=== PATIENT | female | born 1945 | race Hispanic/Latino ===

== ENCOUNTER 2017-08-25 21:17 | Emergency (ER) | payer MEDICARE ==
[2017-08-25 21:40] LABS: BASOPHILS % (AUTO) 0.5 % (0.0-5.0); EOSINOPHILS % (AUTO) 1.8 % (0.0-8.0); HEMATOCRIT 33.5 % (36-48); LYMPHOCYTES % (AUTO) 28.3 % (21.0-51.0); MEAN CORPUSCULAR HEMOGLOBIN 26.9 pg (27.0-33.0); MEAN CORPUSCULAR HGB CONC 32.3 g/dL (32.0-36.0); MEAN CORPUSCULAR VOLUME 83.4 fL (79-99); MONOCYTES % (AUTO) 7.8 % (3.0-13.0); NEUTROPHILS % (AUTO) 61.6 % (40.0-77.0); PLATELET COUNT (AUTO) 399 K/uL (130-400); RED BLOOD CELL COUNT(AUTO) 4.01 MIL/uL (4.00-5.50); RED CELL DISTRIBUTION WIDTH 14.4 % (11.0-15.5); WHITE BLOOD COUNT (AUTO) 12.6 K/uL (4.8-10.8)
[2017-08-25 21:50] LABS: CREATININE 1.1 mg/dL (0.5-1.5); POTASSIUM 3.8 mmol/L (3.5-5.1)
[2017-08-25 21:57] LABS: BILIRUBIN,TOTAL 0.1 mg/dL (0.2-1.0); TOTAL PROTEIN, SERUM 7.3 g/dL (6.0-8.3)
[2017-08-25 21:59] LABS: B-TYPE NATRIURETIC PEPTIDE 61 pg/mL (0-100)
[2017-08-25 22:15] LABS: RAPID GROUP A STREP NEGATIVE (NEGATIVE)
[2017-08-25] MEDS ORDERED: MECLIZINE HCL 25 MG TABLET ONE (22:39)
[2017-08-25] MEDS ORDERED: ONDANSETRON ODT 4 MG TAB ONE (22:40)
[2017-08-25 23:35] LABS: APPEARANCE,URINE Clear (CLEAR); BILIRUBIN,URINE Negative (NEGATIVE); COLOR,URINE Yellow (YELLOW); GLUCOSE, URINE (UA) Negative (NEGATIVE); KETONES,URINE Negative (NEGATIVE); LEUKOCYTE ESTERASE ,URINE Small (NEGATIVE); NITRATE,URINE Negative (NEGATIVE); OCCULT BLOOD,URINE Negative (NEGATIVE); PROTEIN,URINE POS 1+ (NEGATIVE); UROBILINOGEN,URINE 0.2 mg/dL (0.2-1.0)
[2017-08-25 23:49] LABS: BACTERIA,URINE Few /HPF (None Seen); RBC,URINE 0-1 /HPF (0-1); SQUAMOUS EPITHELIAL CELL,UR 0-2 /LPF (0-2)
[2017-08-26] MEDS ORDERED: DEXAMETHASONE SOD PHOSPHATE 4 MG/ML 1ML VIAL ONE (00:09)
== END 2017-08-26 01:15 | disposition home or self-care (01) ==
LOC: EDH 21:17
DX: B34.9 Viral infection, unspecified (principal); R42 Dizziness and giddiness; R11.0 Nausea; I10 Essential (primary) hypertension; E78.5 Hyperlipidemia, unspecified; E11.9 Type 2 diabetes mellitus without complications; M19.90 Unspecified osteoarthritis, unspecified site; Z79.4 Long term (current) use of insulin; Z90.710 Acquired absence of both cervix and uterus
CPT/HCPCS: 36415; 80053; 81001; 83605; 83690; 83880; 84484; 85025; 87804 ×2; 87880; 93005; 96372; 99285; J1100

== ENCOUNTER 2017-10-11 12:44 | Observation (INO) | payer MEDICARE ==
[~2017-10-11] VITALS: Ht 152.4 cm; Wt 107.5 kg
[2017-10-11 14:00] LABS: APPEARANCE,URINE CLEAR (CLEAR); BILIRUBIN,URINE NEGATIVE (NEGATIVE); COLOR,URINE YELLOW (YELLOW); GLUCOSE, URINE (UA) NEGATIVE (NEGATIVE); KETONES,URINE NEGATIVE (NEGATIVE); LEUKOCYTE ESTERASE ,URINE TRACE (NEGATIVE); NITRATE,URINE NEGATIVE (NEGATIVE); OCCULT BLOOD,URINE NEGATIVE (NEGATIVE); PROTEIN,URINE TRACE (NEGATIVE); UROBILINOGEN,URINE 0.2 mg/dL (0.2-1.0)
[2017-10-11 14:26] LABS: BACTERIA,URINE None Seen /HPF (None Seen); RBC,URINE None Seen /HPF (0-1); RENAL EPITHELIAL CELLS,URINE Rare /HPF (None Seen); SQUAMOUS EPITHELIAL CELL,UR 0-2 /HPF (0-2); TRANSITIONAL EPI CELLS,URINE Few /HPF (None Seen); WBC,URINE 0-1 /HPF (0-1)
[2017-10-11] MEDS ORDERED: BISACODYL 10 MG SUPP.RECT RC ONE (16:01)
[2017-10-11] MEDS ORDERED: LACTULOSE 20 GM/30 ML UDCUP ONE (16:01)
[2017-10-11] MEDS ORDERED: MAGNESIUM CITRATE 296 ML SOLUTION ONE (16:01)
[2017-10-11] MEDS ORDERED: SODIUM CHLORIDE 0.9% 1000ML 1,000 ML IV ONE (16:01)
[2017-10-11 16:49] LABS: BASOPHILS % (AUTO) 0.8 % (0.0-5.0); EOSINOPHILS % (AUTO) 1.1 % (0.0-8.0); HEMATOCRIT 36.6 % (36-48); MEAN CORPUSCULAR HEMOGLOBIN 26.9 pg (27.0-33.0); MEAN CORPUSCULAR HGB CONC 32.7 g/dL (32.0-36.0); MEAN CORPUSCULAR VOLUME 82.4 fL (79-99); MONOCYTES % (AUTO) 6.3 % (3.0-13.0); NEUTROPHILS % (AUTO) 66.8 % (40.0-77.0); PLATELET COUNT (AUTO) 398 K/uL (130-400); RED BLOOD CELL COUNT(AUTO) 4.44 MIL/uL (4.00-5.50); RED CELL DISTRIBUTION WIDTH 14.3 % (11.0-15.5); WHITE BLOOD COUNT (AUTO) 15.3 K/uL (4.8-10.8)
[2017-10-11 16:55] LABS: CREATININE 1.1 mg/dL (0.5-1.5); MAGNESIUM 2.1 mg/dL (1.80-2.40); POTASSIUM 4.8 mmol/L (3.5-5.1)
[2017-10-11] MEDS ORDERED: ONDANSETRON HCL MDV 20ML 2 MG/ML VIAL ONE (20:21)
[2017-10-11] MEDS ORDERED: MORPHINE SULFATE 2 MG/ML 1ML SYG ONE (20:22)
[2017-10-11 21:00] VITALS: BP 157/66
[2017-10-11] MEDS: MECLIZINE HCL 25 MG TABLET PO SCH (21:30)
[2017-10-11] MEDS ORDERED: MECLIZINE HCL 25 MG TABLET ONE (21:53)
[2017-10-11 23:37] VITALS: BP 148/71
[2017-10-12 03:14] VITALS: BP 152/76
[2017-10-12] MEDS ORDERED: ACETAMINOPHEN 325 MG TAB PO PRN (06:30)
[2017-10-12] MEDS ORDERED: MORPHINE SULFATE 2 MG/ML 1ML SYG IVP PRN (06:30)
[2017-10-12] MEDS ORDERED: ONDANSETRON HCL MDV 20ML 2 MG/ML VIAL IVP PRN (06:30)
[2017-10-12 07:57] VITALS: BP 141/76
[2017-10-12] MEDS ORDERED: SITA100T12 PO (08:11)
[2017-10-12] MEDS ORDERED: METO25TA6 PO (08:11)
[2017-10-12] MEDS ORDERED: ISOS30TA6 PO (08:11)
[2017-10-12] MEDS ORDERED: DOCU100C19 PO (08:11)
[2017-10-12] MEDS ORDERED: ACET-2041 PO (08:11)
[2017-10-12] MEDS ORDERED: AEC81 PO (08:11)
[2017-10-12] MEDS ORDERED: LISI-613 PO (08:11)
[2017-10-12] MEDS ORDERED: FENO48TA4 PO (08:11)
[2017-10-12] MEDS ORDERED: RANI150T7 PO (08:11)
[2017-10-12] MEDS ORDERED: INSU10VI3 SQ ×2 (08:11)
[2017-10-12] MEDS ORDERED: DOCUSATE SODIUM 100 MG CAP PO SCH (09:00)
[2017-10-12] MEDS ORDERED: LINAGLIPTIN 5 MG TABLET PO SCH (09:00)
[2017-10-12] MEDS ORDERED: LISINOPRIL 20 MG TABLET PO SCH (09:00)
[2017-10-12] MEDS ORDERED: METOPROLOL TARTRATE 25 MG TAB PO SCH (09:00)
[2017-10-12] MEDS ORDERED: FENOFIBRATE NANOCRYSTALLIZED 48 MG TAB PO SCH (09:00)
[2017-10-12] MEDS ORDERED: ASPIRIN 81 MG EC TAB PO SCH (09:00)
[2017-10-12] MEDS ORDERED: ISOSORBIDE MONO 30MG TAB SR PO SCH (09:00)
[2017-10-12] MEDS: MECLIZINE HCL 25 MG TABLET PO SCH (09:47)
[2017-10-12 12:53] VITALS: BP 124/61
[2017-10-12] MEDS ORDERED: INSULIN HUMULIN 70/30 100 UNIT/ML 3ML SQ SCH (21:00)
[2017-10-13] MEDS ORDERED: INSULIN HUMULIN 70/30 100 UNIT/ML 3ML SQ SCH (07:30)
== END 2017-10-12 14:50 | disposition home or self-care (01) ==
LOC: EDH 12:44 → EDHIP 15:00 → 3AH 20:50
PROVIDERS: ADMIT Internal Medicine; ATTEND Internal Medicine
DX: K59.00 Constipation, unspecified (principal); E11.9 Type 2 diabetes mellitus without complications; I10 Essential (primary) hypertension; E78.5 Hyperlipidemia, unspecified; M19.90 Unspecified osteoarthritis, unspecified site; E66.01 Morbid (severe) obesity due to excess calories
CPT/HCPCS: 36415; 74021; 80048; 81001; 82948 ×3; 83735; 85025; 99285; G0378 ×24; J7030

== ENCOUNTER → 2017-10-31 | Outpatient (CLI) | payer MEDICARE ==
[~2017-10-31] MED LIST: ACET-2041 PO; AEC81 PO; DOCU100C19 PO; FENO48TA4 PO; INSU10VI3 SQ; ISOS30TA6 PO; LISI-613 PO; METO25TA6 PO; RANI150T7 PO; SITA100T12 PO
== END | disposition home or self-care (01) ==
LOC: SHCH 13:54
PROVIDERS: ATTEND Internal Medicine Cardiovascular Disease
DX: R42 Dizziness and giddiness (principal); I77.1 Stricture of artery; I65.23 Occlusion and stenosis of bilateral carotid arteries
CPT/HCPCS: 93880

== ENCOUNTER 2018-04-12 07:36 | Inpatient (IN) | payer MEDICARE ==
[~2018-04-12] VITALS: Ht 152.4 cm; Wt 104.1 kg
[~2018-04-12 07:36] MED LIST changes: +DOCU-282 PO; -DOCU100C19 PO
[2018-04-12 07:58] LABS: BASOPHILS % (AUTO) 0.5 % (0.0-5.0); EOSINOPHILS % (AUTO) 1.6 % (0.0-8.0); HEMATOCRIT 34.1 % (36-48); MEAN CORPUSCULAR HEMOGLOBIN 27.1 pg (27.0-33.0); MEAN CORPUSCULAR HGB CONC 32.9 g/dL (32.0-36.0); MEAN CORPUSCULAR VOLUME 82.5 fL (79-99); MONOCYTES % (AUTO) 5.4 % (3.0-13.0); NEUTROPHILS % (AUTO) 68.5 % (40.0-77.0); PLATELET COUNT (AUTO) 373 K/uL (130-400); RED BLOOD CELL COUNT(AUTO) 4.14 MIL/uL (4.00-5.50); RED CELL DISTRIBUTION WIDTH 14.4 % (11.0-15.5); WHITE BLOOD COUNT (AUTO) 13.5 K/uL (4.8-10.8)
[2018-04-12] MEDS ORDERED: ASPIRIN 325 MG TABLET ONE (07:58)
[2018-04-12 08:07] LABS: CREATININE 1.1 mg/dL (0.5-1.5); POTASSIUM 3.6 mmol/L (3.5-5.1)
[2018-04-12 08:10] LABS: INR 0.94 (0.85-1.15); PARTIAL THROMBOPLASTIN TIME 27.8 SEC (26.3-35.5); PROTHROMBIN TIME 9.9 SEC (9.6-11.6)
[2018-04-12 08:11] LABS: BILIRUBIN,TOTAL 0.2 mg/dL (0.2-1.0); TOTAL PROTEIN, SERUM 7.5 g/dL (6.0-8.3)
[2018-04-12] MEDS ORDERED: NITROGLYCERIN 1GM/1 INCH PACKET TD ONE (08:18)
[2018-04-12] MEDS ORDERED: IOHEXOL 350 MG/ML 100ML INFUS..BTL IV ONE (09:56)
[2018-04-12] MEDS ORDERED: ENOXAPARIN SODIUM 100 MG/1 ML SQ ONE (10:40)
[2018-04-12] MEDS ORDERED: HYDROCODONE/ACETAMINOPHEN 5/325 MG TAB PO PRN (11:30)
[2018-04-12 12:42] VITALS: BP 162/70
[2018-04-12] MEDS ORDERED: MORPHINE SULFATE 2 MG/ML 1ML SYG IVP PRN (13:00)
[2018-04-12] MEDS ORDERED: ONDANSETRON HCL MDV 20ML 2 MG/ML VIAL IVP PRN (13:00)
[2018-04-12] MEDS ORDERED: MELA1TAB PO (13:01)
[2018-04-12] MEDS ORDERED: ROSU5TAB11 PO (13:01)
[2018-04-12] MEDS ORDERED: MECL-111 PO (13:01)
[2018-04-12] MEDS ORDERED: ACET325C5 PO (13:01)
[2018-04-12 13:33] LABS: BILIRUBIN,TOTAL 0.2 mg/dL (0.2-1.0); TOTAL PROTEIN, SERUM 7.3 g/dL (6.0-8.3)
[2018-04-12] MEDS: LEVOFLOXACIN 500 MG/D5W 100 ML 100 ML IV SCH (14:58)
[2018-04-12] MEDS: NITROGLYCERIN 1GM/1 INCH PACKET TD SCH ×2 (14:58→20:56)
[2018-04-12 16:37] VITALS: BP 130/73
[2018-04-12] MEDS: INSULIN HUMULIN R 100 UNIT/ML 3ML SQ SCH ×2 (17:01→20:54)
[2018-04-12] MEDS: MECLIZINE HCL 25 MG TABLET PO PRN (18:31)
[2018-04-12 20:12] VITALS: BP 152/74
[2018-04-12] MEDS: ACETAMINOPHEN 325 MG TAB PO SCH (20:48)
[2018-04-12] MEDS: METOPROLOL TARTRATE 25 MG TAB PO SCH (20:48)
[2018-04-12] MEDS: INSULIN GLARGINE 100 UNITS/ML 10 ML VIAL SQ SCH (20:55)
[2018-04-12] MEDS: PYRIDOXINE HCL PO SCH (20:57)
[2018-04-12] MEDS: MELATONIN PO SCH (20:57)
[2018-04-12] MEDS: [UNRECOGNIZED DRUG - OTHER] PO SCH (20:57)
[2018-04-12 23:18] VITALS: BP 149/72
[2018-04-13 04:00] VITALS: BP 153/73
[2018-04-13 04:24] LABS: BASOPHILS % (AUTO) 0.5 % (0.0-5.0); EOSINOPHILS % (AUTO) 1.3 % (0.0-8.0); LYMPHOCYTES % (AUTO) 27.9 % (21.0-51.0); MEAN CORPUSCULAR HEMOGLOBIN 26.1 pg (27.0-33.0); MEAN CORPUSCULAR HGB CONC 31.8 g/dL (32.0-36.0); MEAN CORPUSCULAR VOLUME 82.2 fL (79-99); MONOCYTES % (AUTO) 6.1 % (3.0-13.0); NEUTROPHILS % (AUTO) 64.2 % (40.0-77.0); PLATELET COUNT (AUTO) 341 K/uL (130-400); RED BLOOD CELL COUNT(AUTO) 4.26 MIL/uL (4.00-5.50); RED CELL DISTRIBUTION WIDTH 14.3 % (11.0-15.5); WHITE BLOOD COUNT (AUTO) 10.9 K/uL (4.8-10.8)
[2018-04-13 04:48] LABS: ALBUMIN 2.9 g/dL (3.5-5.0); BILIRUBIN,TOTAL 0.3 mg/dL (0.2-1.0); POTASSIUM 3.6 mmol/L (3.5-5.1); THYROID STIMULATING HORMONE 1.43 uIU/mL (0.36-3.74); TOTAL PROTEIN, SERUM 7.5 g/dL (6.0-8.3)
[2018-04-13] MEDS: NITROGLYCERIN 1GM/1 INCH PACKET TD SCH ×3 (06:12→20:19)
[2018-04-13] MEDS: INSULIN HUMULIN R 100 UNIT/ML 3ML SQ SCH ×4 (06:15→20:21)
[2018-04-13 07:20] VITALS: BP 149/77
[2018-04-13] MEDS: ISOSORBIDE MONO 30MG TAB SR PO SCH (08:08)
[2018-04-13] MEDS: ASPIRIN 81 MG EC TAB PO SCH (08:08)
[2018-04-13] MEDS: METOPROLOL TARTRATE 25 MG TAB PO SCH ×2 (08:08→20:17)
[2018-04-13] MEDS: ACETAMINOPHEN 325 MG TAB PO SCH ×2 (08:08→20:18)
[2018-04-13] MEDS: PANTOPRAZOLE SODIUM 40 MG TABLET.DR PO SCH (08:08)
[2018-04-13] MEDS: ATORVASTATIN CALCIUM 10 MG TABLET PO SCH (08:09)
[2018-04-13] MEDS: LISINOPRIL 20 MG TABLET PO SCH (08:09)
[2018-04-13] MEDS: ENOXAPARIN SODIUM 40 MG/0.4 ML SYRINGE SQ SCH (08:09)
[2018-04-13] MEDS: LINAGLIPTIN 5 MG TABLET PO SCH (08:10)
[2018-04-13] MEDS: FENOFIBRATE NANOCRYSTALLIZED 48 MG TAB PO SCH (08:10)
[2018-04-13] MEDS: MECLIZINE HCL 25 MG TABLET PO PRN (11:10)
[2018-04-13 11:19] VITALS: BP 126/58
[2018-04-13] MEDS: LEVOFLOXACIN 500 MG/D5W 100 ML 100 ML IV SCH (13:41)
[2018-04-13 16:10] VITALS: BP 131/56
[2018-04-13 19:58] VITALS: BP 125/59
[2018-04-13] MEDS: INSULIN GLARGINE 100 UNITS/ML 10 ML VIAL SQ SCH (20:22)
[2018-04-13] MEDS: PYRIDOXINE HCL PO SCH (21:00)
[2018-04-13] MEDS: MELATONIN PO SCH (21:00)
[2018-04-13] MEDS: [UNRECOGNIZED DRUG - OTHER] PO SCH (21:00)
[2018-04-14] VITALS: BP 132/72
[2018-04-14 04:16] LABS: BASOPHILS % (AUTO) 0.7 % (0.0-5.0); EOSINOPHILS % (AUTO) 1.9 % (0.0-8.0); HEMATOCRIT 33.8 % (36-48); LYMPHOCYTES % (AUTO) 22.4 % (21.0-51.0); MEAN CORPUSCULAR HEMOGLOBIN 26.6 pg (27.0-33.0); MEAN CORPUSCULAR HGB CONC 32.3 g/dL (32.0-36.0); MEAN CORPUSCULAR VOLUME 82.3 fL (79-99); PLATELET COUNT (AUTO) 388 K/uL (130-400); RED BLOOD CELL COUNT(AUTO) 4.11 MIL/uL (4.00-5.50); RED CELL DISTRIBUTION WIDTH 14.4 % (11.0-15.5); WHITE BLOOD COUNT (AUTO) 12.5 K/uL (4.8-10.8)
[2018-04-14] MEDS: NITROGLYCERIN 1GM/1 INCH PACKET TD SCH (04:22)
[2018-04-14 04:33] LABS: ALBUMIN 2.9 g/dL (3.5-5.0); BILIRUBIN,TOTAL 0.2 mg/dL (0.2-1.0); CREATININE 1.3 mg/dL (0.5-1.5); POTASSIUM 3.4 mmol/L (3.5-5.1); TOTAL PROTEIN, SERUM 7.4 g/dL (6.0-8.3)
[2018-04-14 04:37] VITALS: BP 160/79
[2018-04-14] MEDS: INSULIN HUMULIN R 100 UNIT/ML 3ML SQ SCH ×2 (06:24→11:17)
[2018-04-14] MEDS: METOPROLOL TARTRATE 25 MG TAB PO SCH (07:13)
[2018-04-14] MEDS: ACETAMINOPHEN 325 MG TAB PO SCH (07:14)
[2018-04-14] MEDS: ASPIRIN 81 MG EC TAB PO SCH (07:14)
[2018-04-14] MEDS: LISINOPRIL 20 MG TABLET PO SCH (07:14)
[2018-04-14] MEDS: PANTOPRAZOLE SODIUM 40 MG TABLET.DR PO SCH (07:14)
[2018-04-14] MEDS: ATORVASTATIN CALCIUM 10 MG TABLET PO SCH (07:14)
[2018-04-14] MEDS: ISOSORBIDE MONO 30MG TAB SR PO SCH (07:15)
[2018-04-14] MEDS: ENOXAPARIN SODIUM 40 MG/0.4 ML SYRINGE SQ SCH (07:15)
[2018-04-14 07:43] VITALS: BP 146/76
[2018-04-14] MEDS: LINAGLIPTIN 5 MG TABLET PO SCH (09:18)
[2018-04-14] MEDS: MECLIZINE HCL 25 MG TABLET PO PRN (09:18)
[2018-04-14] MEDS: FENOFIBRATE NANOCRYSTALLIZED 48 MG TAB PO SCH (09:18)
[2018-04-14] MEDS ORDERED: LEVO500T2 PO (09:32)
[2018-04-14] MEDS ORDERED: POTASSIUM CHLORIDE 10% ELIXIR 20 MEQ/15 ML UDCUP PO SCH (09:45)
[2018-04-14 11:19] VITALS: BP 133/71
== END 2018-04-14 13:27 | disposition home or self-care (01) | DRG 392 ==
LOC: EDH 07:36 → 2AH 11:30
PROVIDERS: ADMIT Hospitalist; ATTEND Hospitalist
DX: K21.9 Gastro-esophageal reflux disease without esophagitis (principal); Z68.41 Body mass index [BMI] 40.0-44.9, adult; E11.65 Type 2 diabetes mellitus with hyperglycemia; D72.829 Elevated white blood cell count, unspecified; E66.9 Obesity, unspecified; M06.9 Rheumatoid arthritis, unspecified; E78.5 Hyperlipidemia, unspecified
CPT/HCPCS: 36415; 71045; 71275; 80053; 82948; 84443; 84484; 85025; 85378; 85610; 85730; 93005; 93306; 93970; J1650; J1815; J1956; Q9967

== ENCOUNTER → 2018-08-18 | Outpatient (CLI) | payer MEDICARE ==
[~2018-08-18] MED LIST changes: -ACET-2041 PO; +ACET325C5 PO; -DOCU-282 PO; +LEVO500T2 PO; +MECL-111 PO; +MELA1TAB PO; -RANI150T7 PO; +ROSU5TAB11 PO
== END | disposition home or self-care (01) ==
LOC: SLP 20:18
PROVIDERS: ATTEND Family Medicine
DX: G47.10 Hypersomnia, unspecified (principal); G47.9 Sleep disorder, unspecified
CPT/HCPCS: 95810

== ENCOUNTER → 2019-04-13 | Outpatient (CLI) | payer MEDICARE ==
[~2019-04-13] MED LIST changes: -ACET325C5 PO; +ACET325C6 PO; +IOHEXOL-350 75 ML VIAL IV ONE; -ROSU5TAB11 PO; +ROSU5TAB12 PO
[2019-04-13 09:36] LABS: CREATININE 0.8 mg/dL (0.5-1.5)
== END | disposition home or self-care (01) ==
LOC: RAH 08:40
PROVIDERS: ATTEND Internal Medicine Gastroenterology
DX: K57.90 Diverticulosis of intestine, part unspecified, without perforation or abscess without bleeding (principal); N32.89 Other specified disorders of bladder; N28.89 Other specified disorders of kidney and ureter; K76.0 Fatty (change of) liver, not elsewhere classified; M47.815 Spondylosis without myelopathy or radiculopathy, thoracolumbar region; M43.17 Spondylolisthesis, lumbosacral region
CPT/HCPCS: 36415; 74178; 82565; 84520; Q9967